=== PATIENT | female | born 1970 | race Hispanic/Latino ===

== ENCOUNTER 2024-11-25 13:40 | Emergency (ER) | payer OTHER ==
[~2024-11-25] VITALS: Ht 167.6 cm; Wt 72.6 kg
[2024-11-25 13:45] VITALS: TEMP 98.2
[2024-11-25 14:39] LABS: BASOPHILS % 0.4 % (0.0-1.0); EOSINOPHILS # (AUTO) 0.2 (0.0-0.4); EOSINOPHILS % 1.5 % (0.0-6.0); HEMATOCRIT 42.2 % (34.2-44.1); HEMOGLOBIN 15.1 g/dL (12.0-16.0); LYMPHOCYTES # (AUTO) 3.4 (1.0-3.2); MEAN CORPUSCULAR HEMOGLOBIN 32.1 pg (28-32); MEAN CORPUSCULAR HGB CONC 35.8 g/dL (31-35); MEAN CORPUSCULAR VOLUME 89.8 fL (81-99); MONOCYTES # (AUTO) 0.6 (0.2-0.8); MONOCYTES % 6.5 % (4.4-11.3); NEUTROPHILS # (AUTO) 5.5 (2.1-6.9); NEUTROPHILS % 56.4 % (38.7-80.0); PLATELET COUNT 276 x10e3/uL (140-360); RED CELL DISTRIBUTION WIDTH 12.3 % (11.7-14.4); WHITE BLOOD COUNT 9.72 x10e3/uL (4.8-10.8)
[2024-11-25 15:00] LABS: INR 0.87; PARTIAL THROMBOPLASTIN TIME 29.8 seconds (23.8-35.5); PROTHROMBIN TIME 12.4 seconds (11.9-14.5)
[2024-11-25 15:11] LABS: ALANINE AMINOTRANSFERASE 58 IU/L (0-55); ALBUMIN 4.4 g/dL (3.5-5.0); ALBUMIN/GLOBULIN RATIO 1.1 (0.8-2.0); ALKALINE PHOSPHATASE 96 IU/L (40-150); ANION GAP 15.7 mmol/L (8-16); BILIRUBIN,TOTAL 0.5 mg/dL (0.2-1.2); BLOOD UREA NITROGEN 14 mg/dL (7-26); BUN/CREATININE RATIO 19 (6-25); CALCIUM 9.5 mg/dL (8.4-10.2); CARBON DIOXIDE 22 mmol/L (22-29); CHLORIDE 107 mmol/L (98-107); CREATINE KINASE 67 IU/L (29-168); CREATININE, SERUM 0.75 mg/dL (0.57-1.11); EST GLOMERULAR FILTRATION RATE 95 ML/MIN (>=60); GLUCOSE 102 mg/dL (74-118); POTASSIUM 3.7 mmol/L (3.5-5.1); SODIUM 141 mmol/L (136-145); TOTAL PROTEIN 8.4 g/dL (6.5-8.1)
[2024-11-25 15:13] LABS: BILIRUBIN,URINE NEGATIVE (NEGATIVE); CLARITY,URINE CLOUDY (CLEAR); COLOR,URINE YELLOW (YELLOW); GLUCOSE, URINE NEGATIVE (NEGATIVE); KETONES,URINE NEGATIVE (NEGATIVE); LEUKOCYTE ESTERASE ,URINE TRACE (NEGATIVE); NITRITE,URINE POSITIVE (NEGATIVE); PH,URINE 7 (5 - 7); PROTEIN,URINE DIPSTICK NEGATIVE (NEGATIVE); URINE UROBILINOGEN 0.2 mg/dL (0.2 - 1)
[2024-11-25] MEDS: KETOROLAC TROMETHAMINE 30 MG/ML VIAL IV STA (15:15)
[2024-11-25] MEDS: ONDANSETRON HCL INJ 2MG/ML 2ML 2 MG/ML VIAL IV STA (15:15)
[2024-11-25] MEDS: SODIUM CHLORIDE 0.9% 1000ML 1,000 ML IV SCH (15:15)
[2024-11-25 15:19] LABS: BACTERIA,URINE MANY /HPF; EPITHELIAL CELLS,URINE MODERATE /LPF
[2024-11-25 15:20] LABS: TROPONIN I < 0.001 ng/mL (0-0.300)
[2024-11-25 15:33] LABS: MAGNESIUM 2.2 MG/DL (1.3-2.1)
[2024-11-25 15:54] LABS: THYROID STIMULATING HORMONE 1.555 uIU/mL (0.350-4.940)
[2024-11-25 16:02] LABS: INFLUENZA A AG NEGATIVE (NEGATIVE); INFLUENZA B AG NEGATIVE (NEGATIVE)
[2024-11-25 16:03] LABS: CORONAVIRUS COVID-19 AG NEGATIVE (NEGATIVE)
[2024-11-25] MEDS ORDERED: CEFDINIR300 MG PO (16:54)
[2024-11-25] MEDS ORDERED: ONDANSETRON ODT4 MG PO (16:54)
[2024-11-25 17:00] VITALS: PULSE 66; RESP 16; O2SAT 100
== END 2024-11-25 17:14 | disposition home or self-care (01) ==
LOC: ER 14:56
DX: R42 Dizziness and giddiness (principal); N39.0 Urinary tract infection, site not specified; R51.9 Headache, unspecified; E03.9 Hypothyroidism, unspecified; Z11.52 Encounter for screening for COVID-19
CPT/HCPCS: 36415; 70450; 71045; 80053; 81001; 82550; 83735; 84443; 84484; 85025; 85610; 85730; 87428; 93005; 99284; J1885; J2405; J7030